=== PATIENT | female | born 1975 | race Caucasian/White ===

== ENCOUNTER 2017-07-01 07:32 | Emergency (ER) | payer OTHER ==
[~2017-07-01] VITALS: Ht 157.5 cm; Wt 54.4 kg
[~2017-07-01 07:32] MED LIST: BACTRIM DS TAB1 EACH PO; CIPRO250 M1 PO; CIPROFLOXACIN500 M1 PO; CLEOCIN HCL150 MG PO; LOTRISONE CREAM15 GM TP; MACROBID 100 M100 M1 PO; NOHOMEMEDICATIONS; ORTHO EVRA PAT1 EACH; PENICILLIN V P500 MG PO; PYRIDIUM200 MG PO
[2017-07-01 07:37] VITALS: BP 135/87
[2017-07-01] MEDS ORDERED: ULTRAM 50MG TAB50 MG PO (08:05)
[2017-07-01] MEDS ORDERED: AMOXICILLIN 50500 MG PO (08:05)
== END 2017-07-01 08:13 | disposition home or self-care (01) ==
LOC: M.ERS 07:32
DX: J06.9 Acute upper respiratory infection, unspecified (principal); F17.210 Nicotine dependence, cigarettes, uncomplicated; F10.99 Alcohol use, unspecified with unspecified alcohol-induced disorder